=== PATIENT | male | born 1995 | race Hispanic/Latino ===

== ENCOUNTER 2017-02-15 09:01 | Emergency (ER) | payer OTHER ==
[2017-02-15 09:07] VITALS: BMI 25.0
[2017-02-15 09:08] VITALS: BP 135/76; PULSE 67; RESP 18; TEMP 97.8; O2SAT 99
[2017-02-15] MEDS ORDERED: Lidocaine 1% Inj (20ml) IJ STA ×2 (09:30→10:00)
--- NOTE | 2017-02-15 09:44 | ED PDOC ---
Upper Extremity Pain/Injury Time Seen by Provider: 02/15/17 09:23 Chief Complaint (Nursing): Abnormal Skin Integrity Chief Complaint (Provider): Multiple lacerations History Per: Patient History/Exam Limitations: no limitations Onset/Duration Of Symptoms: Hrs (this morning) Additional Complaint(s): Kvng Gilmore is a 21 year old male, with no past medical history, who presents to the emergency department for multiple injuries to face and both arms onset since this morning. Patient reports he was working with a glass panel which fell and broke with multiple particles falling on him. Patient denies head injury but has multiple lacerations to the face and both arms. No further medical complaints. PMD: None provided. Past Medical History Reviewed: Historical Data, Nursing Documentation, Vital Signs Vital Signs: Last Vital Signs Temp 97.8 F 02/15/17 09:07 Pulse 67 02/15/17 09:07 Resp 18 02/15/17 09:07 BP 135/76 02/15/17 09:07 Pulse Ox 99 02/15/17 09:07 - Medical History PMH: No Chronic Diseases - Family History Family History: States: Unknown Family Hx - Social History Current smoker - smoking cessation education provided: No Alcohol: None Drugs: Denies - Home Medications Home Medications: Ambulatory Orders Medication Instructions Recorded Naproxen [Naprosyn] 500 mg PO BID PRN #15 tablet 02/15/17 - Allergies Allergies/Adverse Reactions: Allergies Allergy/AdvReac Type Severity Reaction Status Date / Time No Known Allergies Allergy Verified 02/15/17 09:07 Review of Systems ROS Statement: Except As Marked, All Systems Reviewed And Found Negative Constitutional: Positive for: Other (multiple laceration to face. No head injury ) Musculoskeletal: Positive for: Arm Pain (multiple laceration to both arms) Physical Exam - Reviewed Nursing Documentation Reviewed: Yes Vital Signs Reviewed: Yes - Physical Exam Appears: Positive for: Well, Non-toxic, No Acute Distress Head Exam: Positive for: ATRAUMATIC, NORMAL INSPECTION, NORMOCEPHALIC Skin: Positive for: Normal Color, Warm, Dry Eye Exam: Positive for: Normal appearance Neck: Positive for: Normal, Painless ROM, Supple Respiratory: Positive for: Normal Breath Sounds. Negative for: Respiratory Distress Extremity: Positive for: Normal ROM, Other (Patient has multiple small superficial facial and bilateral arm lacerations. He has a 1cm to right upper lip. ). Negative for: Pedal Edema, Deformity Neurologic/Psych: Positive for: Alert, Oriented. Negative for: Motor/Sensory Deficits - ECG O2 Sat by Pulse Oximetry: 99 (RA) Pulse Ox Interpretation: Normal Medical Decision Making Medical Decision Making: Initial Impression: Multiple laceration to face and bilateral arm Initial Plan: --Lidocaine 1% (20ml) 1ml IJ --Adacel 0.5 ml IM --reevaluation -The wound was cleaned with saline. The area was prepped and draped in the usual sterile fashion. The wound was closed with 6 5.0 surgical sutures. Used about 1 cc of 1% lidocaine without epi -bilateral hand X-ray and forearm reviewed. No foreign bodies. Scribe Attestation: Documented by Ryder Zhang, acting as a scribe for Casie Kelley MD Provider Scribe Attestation: All medical record entries made by the Scribe were at my direction and personally dictated by me. I have reviewed the chart and agree that the record accurately reflects my personal performance of the history, physical exam, medical decision making, and the department course for this patient. I have also personally directed, reviewed, and agree with the discharge instructions and disposition. Procedures - Laceration/Wound Repair Face Wound Length (cm): 1 Wound's Depth, Shape: superficial, linear Wound Explored: clean Irrigated w/ Saline (ccs): 1 Anesthesia: 1% Lidocaine Wound Repaired With: Sutures Suture Size/Type: 5:0 Number of Sutures: 6 Wound Complexity: Simple Disposition - Clinical Impression Clinical Impression: Lip laceration, Abrasion - Disposition Disposition: Routine/Home Disposition Time: 10:59 Condition: STABLE Additional Instructions: FOLLOW-UP WITH [facility] FOR REEVALUATION. SUTURE REMOVAL IN 3-5 DAYS. Prescriptions: Naproxen [Naprosyn] 500 mg PO BID PRN #15 tablet PRN Reason: Pain, Moderate (4-7) Instructions: Laceration (ED), Abrasion (ED) Forms: [facility] (Thai), [facility] ED School/Work Excuse
[2017-02-15] MEDS ORDERED: Lidocaine/Epi 1% 1:100000 20 ML IJ STA (09:56)
--- NOTE | 2017-02-15 11:13 | RAD ---
PROCEDURE: Radiographs of the Right Forearm HISTORY: r/o FB COMPARISON: None available. TECHNIQUE: Frontal and lateral views obtained. FINDINGS: BONES: No fracture or destructive lesion. JOINT SPACES: Unremarkable. OTHER FINDINGS: None. IMPRESSION: Unremarkable radiographs of the right forearm. No radiopaque foreign body identified.
--- NOTE | 2017-02-15 12:11 | RAD ---
PROCEDURE: Bilateral hand radiographs. HISTORY: r/o FB COMPARISON: None. FINDINGS: BONES: Right Hand: Normal. No osteoarthritic changes. Left Hand: Normal. No osteoarthritic changes. JOINTS: Right Hand: Normal. Left Hand: Normal. SOFT TISSUES: Right Hand: Normal. Left Hand: Normal. OTHER FINDINGS: None. IMPRESSION: Normal radiographs of the hands. No radiopaque foreign body identified.
== END 2017-02-15 11:13 | disposition home or self-care (01) ==
LOC: H.ER 09:01
DX: S01.511A Laceration without foreign body of lip, initial encounter (principal); T14.8XXA Other injury of unspecified body region, initial encounter; W25.XXXA Contact with sharp glass, initial encounter; Y99.0 Civilian activity done for income or pay